=== PATIENT | female | born 1980 | race Caucasian/White ===

== ENCOUNTER 2017-10-16 03:34 | Emergency (ER) | payer OTHER ==
[2017-10-16] MEDS ORDERED: CIPROFLOXACIN-HC OTIC SUSP 10 ML AD ONE (04:38)
--- NOTE | 2017-10-16 04:44 | ER Document Report ---
ED General - General Chief Complaint: Ear Pain Stated Complaint: EAR PAIN Time Seen by Provider: 10/16/17 04:33 Notes: Patient is a 37-year-old female presents with complaint of right ear pain for a month. She says that the hearing in her ear is somewhat muffled. She does admit to swimming. She also uses Q-tips to clean her ears. She said the ear itself feels sore on the inside. No fevers. No runny nose cough or congestion. No other complaints at this time. - Related Data Allergies/Adverse Reactions: No Known Allergies Allergy (Unverified 10/16/17 03:49) Past Medical History - Social History Smoking Status: Never Smoker Frequency of alcohol use: None Drug Abuse: None Family History: Reviewed & Not Pertinent Patient has suicidal ideation: No Patient has homicidal ideation: No - Past Medical History Cardiac Medical History: Reports: Hx Hypertension Renal/ Medical History: Denies: Hx Peritoneal Dialysis Review of Systems - Review of Systems Notes: My Normal Review Basic REVIEW OF SYSTEMS: CONSTITUTIONAL : Denies fever, chills, or sweats. Denies recent illness. EENT: Right ear pain RESPIRATORY: Denies cough, cold, or chest congestion. Denies shortness of breath, difficulty breathing, or wheezing. MUSCULOSKELETAL: Denies neck or back pain or joint pain or swelling. SKIN: Denies rash or skin lesions. NEUROLOGICAL: Denies altered mental status or loss of consciousness. Denies headache. ALL OTHER SYSTEMS REVIEWED AND NEGATIVE. Physical Exam - Vital signs Vitals: Temp Pulse Resp BP Pulse Ox 98.3 F 81 16 133/101 H 100 10/16/17 03:52 10/16/17 03:52 10/16/17 03:52 10/16/17 03:52 10/16/17 03:52 - Notes Notes: General Appearance: Well nourished, alert, cooperative, no acute distress, no obvious discomfort. Well-appearing. Vitals: reviewed, See vital signs table. Head: no swelling or tenderness to the head. No redness or swelling behind the ear. Eyes: PERRL, EOMI, Conjuctiva clear Mouth: No decreasd moisture Throat: No tonsillar inflammation, No airway obstruction, No lymphadenopathy Ears: Left ear canal and tympanic membranes are normal appearing. Patient has some erythema and swelling to the right ear canal. TM is normal-appearing. Neck: Supple, No swelling. Neuro: speech clear, oriented x 3, normal affect, responds appropriately to questions. Course - Re-evaluation Re-evalutation: 10/16/17 04:44 Patient's findings are consistent with otitis externa with inflammation of the ear canal. I encourage her to stop using Q-tips. I will place her on Cipro otic eardrops. I encouraged her return to ER if she has any increasing redness or swelling or pain behind the ear. I will have her follow-up with Dr. Farley for symptoms are not improving the next 2-3 days. 10/16/17 04:45 Dictation of this chart was performed using voice recognition software; therefore, there may be some unintended grammatical errors. - Vital Signs Vital signs: Temp Pulse Resp BP Pulse Ox 98.3 F 81 16 133/101 H 100 10/16/17 03:52 10/16/17 03:52 10/16/17 03:52 10/16/17 03:52 10/16/17 03:52 Discharge - Discharge Clinical Impression: Otitis externa Qualifiers: Otitis externa type: unspecified type Chronicity: unspecified Laterality: right Qualified Code(s): H60.91 - Unspecified otitis externa, right ear Condition: Good Disposition: HOME, SELF-CARE Additional Instructions: Please stop using Q-tips n your ear. Please use the cipro otic ear drops as 1-2 drops in your ear twice a day for 7 days. Please follow up with the ENT doctor, Dr. Farley, if your symptoms are not improving by Saturday. Return to the ER if you have redness or swelling spreading from your ear. Referrals: IVAN FARLEY, [ASSOCIATE] - Follow up in 3-5 days
[2017-10-16] MEDS ORDERED: CIPROFLOXACIN-HC OTIC SUSP 10 ML ONE (05:03)
[2017-10-16 05:20] VITALS: BP 128/95
== END 2017-10-16 05:12 | disposition home or self-care (01) ==
LOC: ER 03:34
DX: H60.91 Unspecified otitis externa, right ear (principal); H92.01 Otalgia, right ear; I10 Essential (primary) hypertension
CPT/HCPCS: 99282; J3490